=== PATIENT | female | born 1975 | race Caucasian/White ===

== ENCOUNTER → 2016-06-25 | Day surgery (SDC) | payer OTHER ==
[2016-06-25 06:26] LABS: HCT 35.4 % (37.0-47.0); HGB 12.2 g/dl (12.5-16.0); MCH 31.2 pg (25.0-31.0); MCHC 34.5 g/dL (32.0-36.0); MCV 90.5 fL (78.0-100.0); MPV 9.9 fL (6.0-9.5); RBC 3.91 M/uL (4.20-5.40); RDW 12.2 % (11.5-14.0); WBC 6.8 K/uL (4.0-10.5)
[2016-06-25 06:46] LABS: ALBUMIN 4.2 g/dL (3.5-5.0); BILIRUBIN - TOTAL 0.2 mg/dL (0.1-1.0); CREATININE 0.7 mg/dL (0.5-1.0); GLOBULIN (CALCULATION) 2.2 g/dL (2.2-4.2); POTASSIUM 4.3 mmol/L (3.5-5.1); TOTAL PROTEIN 6.4 g/dL (6.4-8.3)
== END | disposition home or self-care (01) ==
LOC: FAS 09:03
PROVIDERS: Orthopaedic Surgery
DX: S83.511A Sprain of anterior cruciate ligament of right knee, initial encounter (principal); S83.241A Other tear of medial meniscus, current injury, right knee, initial encounter; M79.4 Hypertrophy of (infrapatellar) fat pad; I10 Essential (primary) hypertension; K21.9 Gastro-esophageal reflux disease without esophagitis; E28.2 Polycystic ovarian syndrome; Z79.899 Other long term (current) drug therapy; Z79.84 Long term (current) use of oral hypoglycemic drugs; X58.XXXA Exposure to other specified factors, initial encounter; Z98.890 Other specified postprocedural states; Z90.89 Acquired absence of other organs
CPT/HCPCS: 36415; 80053; 84703; C1713; J0690; J1100; J1170; J1885; J2405; J2704; J2795; J3010